=== PATIENT | male | born 1940 | race Caucasian/White ===

== ENCOUNTER 2017-10-30 23:29 | Inpatient (IN) | payer MEDICAID ==
[~2017-10-30] VITALS: Ht 180.3 cm; Wt 69.4 kg
[2017-10-30 23:32] VITALS: Ht 180.3 cm; Wt 69.4 kg
[2017-10-31 00:10] LABS: BASOPHIL % 0.1 % (0-2); RED CELL DISTRIBUTION WIDTH 13.9 % (11.5-14.5)
[2017-10-31 00:14] LABS: PLATELET COUNT 90 x10^3mcL (130-400)
[2017-10-31 00:20] LABS: CALCIUM 7.8 mg/dL (8.5-10.1); CARBON DIOXIDE 23.9 mmol/L (21-32); CHLORIDE SERUM 103 mmol/L (98-107); CREATININE SERUM 1.5 mg/dL (0.7-1.3); GLUCOSE SERUM 114 mg/dL (74-106); POTASSIUM SERUM 3.9 mmol/L (3.5-5.1); SODIUM SERUM 135 mmol/L (136-145)
[2017-10-31 00:24] LABS: ALBUMIN 3.2 g/dL (3.4-5.0); ALKALINE PHOSPHATASE 77 U/L (46-116); ALT/SGPT 36 U/L (16-63); AST/SGOT 31 U/L (15-37); BILIRUBIN TOTAL 1.2 mg/dL (0.20-1.00); TOTAL PROTEIN, SERUM 6.2 g/dL (6.4-8.2)
[2017-10-31] MEDS ORDERED: COUMADIN2.5 MG PO (01:19)
[2017-10-31 01:58] LABS: MAGNESIUM 1.8 mg/dL (1.8-2.4); PHOSPHOROUS 2.1 mg/dL (2.5-4.9)
[2017-10-31 02:01] LABS: T3 TOTAL 1.05 ng/mL
[2017-10-31 02:07] LABS: FREE T4 1.02 ng/dL (0.76-1.46); FREE THYROXINE INDEX 2.4 ug/dL (1.4-4.5); T4(THYROXINE) 6.8 ug/dL (4.7-13.3)
[2017-10-31 02:08] LABS: CHOLESTEROL/HDL RATIO 3.3
[2017-10-31 02:54] VITALS: BP 93/56
[2017-10-31 04:13] VITALS: BP 93/56
[2017-10-31 05:27] LABS: UA SPECIFIC GRAVITY <=1.005 (1.005-1.035); microscopic required? YES; urine erythrocyte TRACE (NEGATIVE)
[2017-10-31 06:03] LABS: BASOPHIL % 0.2 % (0-2); RED CELL DISTRIBUTION WIDTH 13.8 % (11.5-14.5)
[2017-10-31 06:36] LABS: PLATELET COUNT 85 x10^3mcL (130-400)
[2017-10-31 06:40] LABS: CARBON DIOXIDE 20.3 mmol/L (21-32); CHLORIDE SERUM 107 mmol/L (98-107); CREATININE SERUM 1.5 mg/dL (0.7-1.3); GLUCOSE SERUM 110 mg/dL (74-106); MAGNESIUM 1.9 mg/dL (1.8-2.4); PHOSPHOROUS 2.4 mg/dL (2.5-4.9); SODIUM SERUM 137 mmol/L (136-145)
[2017-10-31 09:00] VITALS: BP 90/48
[2017-10-31 12:46] VITALS: BP 100/55
[2017-10-31 16:29] VITALS: BP 99/57
[2017-10-31 20:30] VITALS: BP 104/61
[2017-11-01 05:20] VITALS: BP 99/57
[2017-11-01 06:10] LABS: RED CELL DISTRIBUTION WIDTH 14.2 % (11.5-14.5)
[2017-11-01 06:17] LABS: CALCIUM 7.7 mg/dL (8.5-10.1); CARBON DIOXIDE 22.2 mmol/L (21-32); CHLORIDE SERUM 108 mmol/L (98-107); CREATININE SERUM 1.4 mg/dL (0.7-1.3); GLUCOSE SERUM 93 mg/dL (74-106); MAGNESIUM 1.8 mg/dL (1.8-2.4); PHOSPHOROUS 2.2 mg/dL (2.5-4.9); POTASSIUM SERUM 4.2 mmol/L (3.5-5.1); SODIUM SERUM 139 mmol/L (136-145)
[2017-11-01 06:59] LABS: PLATELET COUNT 93 x10^3mcL (130-400)
[2017-11-01 09:42] VITALS: BP 80/49
[2017-11-01 11:53] VITALS: BP 91/61
[2017-11-01 12:11] LABS: BAND NEUTROPHIL 9 % (0-10); MONOCYTE 5 % (0-7); SEGMENTED NEUTROPHILS 67 % (37-75)
[2017-11-01 12:12] LABS: rbc morphology (normal/abnorm) NORMAL (NORMAL)
[2017-11-01 12:18] LABS: PLATELET MORPHOLOGY PLATELETS DECREASED
[2017-11-01 16:34] VITALS: BP 125/71
[2017-11-01 20:01] VITALS: BP 95/57
[2017-11-02 05:50] VITALS: BP 113/65
[2017-11-02 06:07] LABS: BASOPHIL % 0.4 % (0-2)
[2017-11-02 06:35] LABS: CALCIUM 7.8 mg/dL (8.5-10.1); CARBON DIOXIDE 23.7 mmol/L (21-32); CHLORIDE SERUM 108 mmol/L (98-107); CREATININE SERUM 1.4 mg/dL (0.7-1.3); GLUCOSE SERUM 91 mg/dL (74-106); SODIUM SERUM 139 mmol/L (136-145)
[2017-11-02 07:01] LABS: PLATELET COUNT 92 x10^3mcL (130-400); RED CELL DISTRIBUTION WIDTH 14.6 % (11.5-14.5)
[2017-11-02] MEDS ORDERED: AUGMENTIN 875-1 EACH PO (09:16)
[2017-11-02 09:34] VITALS: BP 104/72
[2017-11-02] MEDS ORDERED: TAMSULOSIN HYD0.4 M1 PO (10:23)
[2017-11-02 10:24] VITALS: BP 104/72
== END 2017-11-02 11:50 | disposition home or self-care (01) | DRG 137 ==
LOC: ED 23:29 → DU 10-31 01:22
PROVIDERS: Emergency Medicine; Family Medicine
DX: J69.0 Pneumonitis due to inhalation of food and vomit (principal); J96.01 Acute respiratory failure with hypoxia; N17.0 Acute kidney failure with tubular necrosis; I48.2 Chronic atrial fibrillation; E44.1 Mild protein-calorie malnutrition; E83.39 Other disorders of phosphorus metabolism; G90.8 Other disorders of autonomic nervous system; E87.1 Hypo-osmolality and hyponatremia; I95.1 Orthostatic hypotension; J44.1 Chronic obstructive pulmonary disease with (acute) exacerbation; E86.0 Dehydration; N18.9 Chronic kidney disease, unspecified; N40.0 Benign prostatic hyperplasia without lower urinary tract symptoms; Z68.21 Body mass index [BMI] 21.0-21.9, adult; Z79.01 Long term (current) use of anticoagulants; Z95.810 Presence of automatic (implantable) cardiac defibrillator
CPT/HCPCS: 83880; 84439; 97535-GP; J0456; J0696; J1956; J2405; J2543; J7030; J7040; J7050; J7620; Q0092

== ENCOUNTER 2019-03-04 12:05 | Emergency (ER) | payer MEDICAID ==
[~2019-03-04] VITALS: Ht 175.3 cm; Wt 72.3 kg
[~2019-03-04 12:05] MED LIST: AUGMENTIN 875-1 EACH PO; COUMADIN2.5 MG PO; TAMSULOSIN HYD0.4 M1 PO
[2019-03-04 12:10] VITALS: Ht 175.3 cm; Wt 72.3 kg
[2019-03-04 14:22] VITALS: BP 117/66
== END 2019-03-04 14:22 | disposition home or self-care (01) ==
LOC: ED 12:05
DX: S05.11XA Contusion of eyeball and orbital tissues, right eye, initial encounter (principal); Z95.0 Presence of cardiac pacemaker; W22.03XA Walked into furniture, initial encounter; Y93.89 Activity, other specified; Y92.090 Kitchen in other non-institutional residence as the place of occurrence of the external cause; Y99.8 Other external cause status

== ENCOUNTER 2019-08-15 21:10 | Emergency (ER) | payer MEDICAID ==
[~2019-08-15] VITALS: Ht 167.6 cm; Wt 68.0 kg
[2019-08-15 21:47] VITALS: Ht 167.6 cm; Wt 68.0 kg
[2019-08-15 22:53] VITALS: BP 140/86
== END 2019-08-15 22:53 | disposition home or self-care (01) ==
LOC: ED 21:10
DX: J01.00 Acute maxillary sinusitis, unspecified (principal); Z95.0 Presence of cardiac pacemaker